=== PATIENT | female | born 1990 | race Two or more races ===

== ENCOUNTER 2025-05-23 11:59 | Emergency (ER) | payer SELFPAY ==
[~2025-05-23] VITALS: Ht 177.8 cm; Wt 113.6 kg
--- NOTE | 2025-05-23 13:01 | ED.PDOC ---
HPI (NEURO) HPI Comments THIS IS A 35 YEAR OLD FEMALE PRESENTING TO THE ED WITH CHIEF COMPLAINT OF HEADACHE. PATIENT REPORTS THAT SHE HAS BEEN EXPERIENCING A LEFT SIDED HEADACHE WITH ASSOCIATED NAUSEA FOR THE PAST WEEK. PATIENT RELAYS THAT SHE HAS TAKEN OTC MEDICATION AT HOME WITH NO RELIEF NOTED. PATIENT STATES WHEN SHE GETS TORADOL, BENADRYL, AND ZOFRAN, HER SYMPTOMS ALL RESOLVE. PATIENT DENIES ANY DIZZINESS, N/V, CHEST PAIN, SOB, OR SYNCOPE. NO FURTHER SYMPTOMS OR CONCERNS AT THIS TIME. PT IS ALERT, ORIENTATION X4 WITH NORMAL GAIT. 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 Family History Family History: Reviewed,noncontributory to illness Social History Smoker: Non-Smoker Alcohol: Denies ETOH Use Drugs: Denies Drug Use Lives In: Home Constitutional: denies: chills, diaphoresis, fatigue, fever, malaise, sweats, weakness, others EENTM: denies: blurred vision, double vision, ear bleeding, ear discharge, ear drainage, ear pain, ear ringing, eye pain, eye redness, hearing loss, mouth pain, mouth swelling, nasal discharge, nose bleeding, nose congestion, nose pain , photophobia, tearing, throat pain, throat swelling, voice changes, others Respiratory: denies: cough, hemoptysis, orthopnea, SOB at rest, shortness of breath, SOB with excertion, stridor, wheezing, others Cardiovascular: denies: chest pain, dizzy spells, diaphoresis, Dyspnea on exertion, edema, irregular heart beat, left arm pain, lightheadedness, palpitations, PND, syncope, others Gastrointestinal: reports: nausea; denies: abdomen distended, abdominal pain, blood streaked bowels, constipated, diarrhea, dysphagia, difficulty swallowing, hematemesis, melena, poor appetite, poor fluid intake, rectal bleeding, rectal pain, vomiting, others Genitourinary: denies: abnormal vagina bleeding, burning, dyspareunia, dysuria, flank pain, frequency, hematuria, incontinence, pain, , vagina discharge, urgency, others Neurological: reports: headache; denies: dizziness, fainting, left sided numbness, left sided weakness, numbness, paresthesia, pre-existing deficit, right sided numbness, right sided weakness, seizure, speech problems, tingling, tremors, weakness, others Musculoskeletal: denies: back pain, gout, joint pain, joint swelling, muscle pain, muscle stiffness, neck pain, others Integumetry: denies: bruises, change in color, change in hair/nails, dryness, laceration, lesions, lumps, rash, wounds, others Allergic/Immunocompromised: denies: Difficulty Healing, Frequent Infections, Hives, Itching, others Hematologic/Lymphatic: denies: anemia, blood clots, easy bleeding, easy bruising, swollen glands, others Endocrine: denies: excessive hunger, excessive sweating, excessive thirst, excessive urination, flushing, intolerance to cold, intolerance to heat, unexplained weight gain, unexplained weight loss, others Psychiatric: denies: anxiety, bipolar disorder, depression, hopeless, panic disorder, schizophrenia, sleepless, suicidal, others All Other Systems: Reviewed and Negative Physical Exam General Appearance: No Apparent Distress, Normal HEENT: Normal ENT Inspection, PERRL/EOMI, Pharynx Normal, TMs Normal Neck: Full Range of Motion, Non-Tender, Normal, Normal Inspection Respiratory: Chest Non-Tender, Lungs Clear, No Accessory Muscle Use, No Respiratory Distress, Normal Breath Sounds Cardiovascular: No Edema, No JVD, No Murmur, No Gallop, Normal Peripheral Pulses, Regular Rate/Rhythm Breast Exam: Deferred Gastrointestinal: No Organomegaly, Non Tender, No Pulsatile Mass, Normal Bowel Sounds, Soft Genitalia: Deferred Pelvic: Deferred Rectal: Deferred Extremities: No calf tenderness, Normal capillary refill, Normal inspection, Normal range of motion, Non-tender, No pedal edema Musculoskeletal : Apperance: Normal Neurologic: Alert, physician assistant psychiatry II-XII nml as Tested, Headache, No Motor Deficits, Normal Affect, Normal Mood, No Sensory Deficits Cerebellar Function: Normal Reflexes: Normal Skin: Dry, Normal Color, Warm Peripheral Pulses: 2+ carotid (R), 2+ carotid (L) Lymphatic: No Adenopathy Was a procedure done? Was a procedure done?: No Differential Diagnosis (SZ) Headache: Cluster, Migraine, Sinusitis, Other (CHRONIC MIGRAINE HEADACHE ) X-Ray, Labs, Meds, VS Vital Signs Date Time Temp Pulse Resp B/P (MAP) Pulse Ox O2 Delivery O2 Flow Rate FiO2 05/23/25 12:01 98.1 77 16 129/87 97 98.1 Current Medications Medications (Trade) Dose Ordered Sig/Kierra Route Start Time Stop Time Status Last Admin Ketorolac Tromethamine (Toradol Injection) 60 mg ONCE ONCE IM 05/23/25 12:45 05/23/25 12:46 DC 05/23/25 13:02 Diphenhydramine HCl (Benadryl Injection) 50 mg ONCE ONCE IM 05/23/25 12:45 05/23/25 12:46 DC 05/23/25 13:02 Ondansetron HCl (Zofran Po) 4 mg ONCE ONCE PO 05/23/25 12:45 05/23/25 12:46 DC 05/23/25 13:03 X-Ray, Labs, Meds, VS Comment EXTERNAL MEDICAL RECORDS REVIEWED: [NONE] INDEPENDENT HISTORIANS: [NONE] SOCIAL DETERMINANTS OF HEALTH: [NONE] LABS ORDERED: NONE REVIEWED AND INTERPRETED RESULTS: NONE IMAGING ORDERED: NONE TREATMENTS ORDERED: ZOFRAN 4MG PO, BENADRYL 50MG PO, TORADOL 60MG IM PROCEDURES PERFORMED: NONE CRITICAL CARE TIME: NONE I HAVE DISCUSSED THE PATIENT WITH THE ATTENDING PHYSICIAN DR. STOKES AND HE AGREES WITH THE PATIENT'S PLAN OF CARE AND DISPOSITION. BASED ON HISTORY OF PRESENT ILLNESS, AND PHYSICAL EXAM, PATIENT WILL BE DISCHARGED HOME. DISCUSSED PLAN FOR DISCHARGE HOME WITH RX [IMITREX 50MG AND ZOFRAN 4MG ODT]. MEDICATION WARNINGS GIVEN. SHARED DECISION MAKING: DISCUSSED WITH PATIENT THAT THEIR WORKUP WAS NORMAL. PATIENT INSTRUCTED TO FOLLOW UP WITH PRIMARY CARE PROVIDER IN 1-2 DAYS FOR RE- EVALUATION OF SYMPTOMS. PATIENT VERBALIZES UNDERSTANDING TO RETURN TO ED FOR NEW OR WORSENING SYMPTOMS OR IF FOLLOW UP WITH PCP CANNOT BE OBTAINED. PATIENT FEELS COMFORTABLE GOING HOME AT THIS TIME. ALL QUESTIONS ADDRESSED AT TIME OF DISCHARGE. Time of 1ST Reevaluation: 13:30 Reevaluation 1ST: Improved Patient Education/Counseling: Diagnosis, Treatment, Need For Follow Up Family Education/Counseling: Diagnosis, Treatment, Need For Follow Up Medical Screening: No EMC Exist At This Time Departure 1 Departure Time of Disposition: 13:30 Impression: Primary Impression: Migraine headache Qualified Codes: G43.909 - Migraine, unspecified, not intractable, without status migrainosus Additional Impression: Pain management Disposition: HOME / SELF CARE / HOMELESS Condition: Stable Additional Instructions: FOLLOW-UP WITH PCP IN 1 TO 2 DAYS. TAKE MEDICATIONS PRESCRIBED. RETURN TO ED FOR ANY NEW OR WORSENING SYMPTOMS. e-Prescriptions Ondansetron Odt 4MG Tab (ZOFRAN PO) 4 Mg Tb 4 MG PO BID, #14 TAB ODT TAB-DISSOLVE IN MOUTH, THEN SWALLOW Prov: ANDRES OTERO 05/23/25 Sumatriptan Succinate (Imitrex) 50 Mg Tab 1 TAB PO BID, #20 TAB Prov: ANDRES OTERO 05/23/25 Discharged With: Self, Spouse Critical Care Note Critical Care Time?: No Stability Stability form required: No Heart Score Heart Score: Heart Score Response (Comments) Value History N/A 0 EKG N/A 0 Age N/A 0 Risk Factors N/A 0 Troponin N/A 0 Total 0 I personally scribed for ANDRES OTERO ([email or web address]) on 05/23/25 at 13:01. Electronically submitted by Octavio Luciano ([email or web address]). ANDRES OTERO May 23, 2025 13:01
[2025-05-23] MEDS: diphenhdrAMINE HCL 50 MG/1 ML VL IM ONE (13:02)
[2025-05-23] MEDS: KETOROLAC TROMETH 60MG/2ML VIAL IM ONE (13:02)
[2025-05-23] MEDS: ONDANSETRON ODT 4 MG TAB PO ONE (13:03)
[2025-05-23] MEDS ORDERED: ZOFR4T PO (13:20)
[2025-05-23] MEDS ORDERED: SUMA50TA2 PO (13:20)
[2025-05-23 13:26] VITALS: BP 131/88; PULSE 64; RESP 16; TEMP 98.3; O2SAT 99
== END 2025-05-23 13:27 | disposition home or self-care (01) ==
LOC: ER 11:59
DX: G43.909 Migraine, unspecified, not intractable, without status migrainosus (principal); Z01.89 Encounter for other specified special examinations; Z79.899 Other long term (current) drug therapy
CPT/HCPCS: 96372; 99284; J1200; J1885; Q0162